=== PATIENT | female | born 1995 | race African-American/Black ===

== ENCOUNTER 2018-12-27 23:13 | Emergency (ER) | payer OTHER ==
[~2018-12-27] VITALS: Ht 162.6 cm; Wt 104.3 kg
[2018-12-28] MEDS ORDERED: TESSALON PERLE100 MG PO (00:13)
[2018-12-28] MEDS ORDERED: ZPAK PO (00:13)
[2018-12-28 00:38] VITALS: BP 122/73
== END 2018-12-28 00:40 | disposition home or self-care (01) ==
LOC: ER 23:13
DX: J20.9 Acute bronchitis, unspecified (principal); J02.9 Acute pharyngitis, unspecified; E66.9 Obesity, unspecified; Z68.39 Body mass index [BMI] 39.0-39.9, adult

== ENCOUNTER 2019-01-08 21:37 | Emergency (ER) | payer OTHER ==
[~2019-01-08] VITALS: Ht 162.6 cm; Wt 113.4 kg
[~2019-01-08 21:37] MED LIST: TESSALON PERLE100 MG PO; ZPAK PO
[2019-01-08 22:57] LABS: URINE BILIRUBIN NEGATIVE (Negative); URINE BLOOD NEGATIVE (Negative); URINE CLARITY SL CLOUDY; URINE COLOR YELLOW; URINE GLUCOSE-RANDOM* NEGATIVE (Negative); URINE KETONES 1+ (Negative); URINE NITRITE-REFLEX NEGATIVE (Negative); URINE PROTEIN (DIPSTICK) NEGATIVE (Negative); URINE SPECIFIC GRAVITY 1.025 (1.005-1.035)
[2019-01-08 22:58] LABS: URINE LEUKOCYTES-REFLEX 1+ (Negative)
[2019-01-08 23:24] LABS: CASTS None Seen /LPF (None Seen); CRYSTALS None Seen /LPF (None Seen); MUCUS 4-6 Moderate strn/LPF (None Seen); SQUAMOUS 4-10 Moderate /LPF (0-3); URINE RBC 3-10 Few /HPF (0-2); WBC CLUMPS Few (None Seen)
[2019-01-08] MEDS ORDERED: TESSALON PERLE100 MG PO (23:30)
[2019-01-08] MEDS ORDERED: PREDNISONE 10 M10 MG PO (23:30)
[2019-01-08 23:41] VITALS: BP 118/58
== END 2019-01-08 23:45 | disposition home or self-care (01) ==
LOC: ER 21:37
PROVIDERS: Physician Assistant
DX: J06.9 Acute upper respiratory infection, unspecified (principal); E86.0 Dehydration; B34.9 Viral infection, unspecified